=== PATIENT | female | born 1995 | race African-American/Black ===

== ENCOUNTER 2018-01-25 11:49 | Emergency (ER) | payer SELFPAY ==
[2018-01-25 12:08] VITALS: BP 125/64; PULSE 71; RESP 16; TEMP 98.9; O2SAT 99
--- NOTE | 2018-01-25 12:40 | RADRPT ---
EXAM DATE/TIME: 01/25/2018 12:21 [place] COMPARISON: No previous studies available for comparison. INDICATIONS : Twisted left knee while wrestling 3 days ago. Pain with swelling difficult weight bearing. Prio Left knee dislocation MEDICAL HISTORY : Prior dislocation SURGICAL HISTORY : None. ENCOUNTER: Initial ACUITY: 3 days PAIN SCORE: 8/10 LOCATION: Left knee. FINDINGS: Four view examination of the left knee demonstrates no evidence of fracture or dislocation. Bony min eralization is normal. The articular surfaces are intact. The suprapatellar soft tissues have a nor mal configuration. CONCLUSION: Unremarkable examination of the left knee. Weston Gutierrez Jr., MD on January 25, 2018 at 12:36 Board Certified Radiologist. This report was verified electronically.
[2018-01-25] MEDS ORDERED: IBUP1TAB7 PO (13:32)
--- NOTE | 2018-01-25 13:32 | PD ---
HPI Chief Complaint: Injury Time Seen by Provider: 13:18 Travel History International Travel<30 days: No Contact w/Intl Traveler<30days: No Traveled to known affect area: No History of Present Illness HPI Patient comes emergency for evaluation of left knee pain that began 3 days ago. Patient reports that she was wrestling another individual when she slammed the other person to the ground when she turned the wrong way feeling like her patella popped out of place and then pop back in. Patient reports she has had this happen to her in the past ever since injuring it while playing football a year ago. Patient reports this has happened time to time since. Patient denies ever seeing orthopedic for this. Patient reports it usually just gets better in a couple of days. Patient is concerned as it does not seem to be improving. Patient described pain as it just hurts. Denies any radiation of pain. Pain is worse with walking. Not walking improves the pain. PFSH Past Medical History Medical History: Denies Significant Hx ?: Not Social History Alcohol Use: No Tobacco Use: No Substance Use: No Allergies-Medications (Allergen,Severity, Reaction): Coded Allergies: No Known Allergies (Unverified , 01/25/18) Reported Meds & Prescriptions Reported Meds & Active Scripts Active Ibuprofen 800 Mg Tab 800 Mg PO Q8H PRN Review of Systems Except as stated in HPI: all other systems reviewed are Neg Physical Exam Narrative GENERAL: Well-developed, overly nourished, in no acute distress, and non-ill appearing. SKIN: Focused skin assessment warm and dry. HEAD: Atraumatic. Normocephalic. EYES: Pupils equal and round. EOMI. No scleral icterus. No injection or drainage. ENT: No nasal bleeding or discharge. Mucous membranes pink and moist. NECK: Trachea midline. Supple. No nuclear rigidity. CARDIOVASCULAR: Dorsal pulses 2+, intact, and equal bilaterally. RESPIRATORY: No accessory muscle use. No respiratory distress. MUSCULOSKELETAL: No obvious deformities. No clubbing. No cyanosis. No edema. Full range of motion. Knee: Negative patellar apprehension, varus and valgus maneuvers, anterior draw test, and Griselda test. Pulses equal BL distal to injury. Capillary refill less than 2 seconds distal to injury and equal BL. FROM distal to injury and equal BL. Strength distal to injury equal BL. NV intact distal to injury. Dorsal pulses equal BL. Sensation equal BL 1st web space. Patient reports tenderness palpation over anterior aspect of left knee. There is minimal soft tissue swelling noted. No crepitus. No signs of infection. NEUROLOGICAL: Awake and alert. No obvious cranial nerve deficits. Motor grossly within normal limits. Normal speech. PSYCHIATRIC: Appropriate mood and affect; insight and judgment normal. Data Data Last Documented VS Vital Signs Date Time Temp Pulse Resp B/P (MAP) Pulse Ox O2 Delivery O2 Flow Rate FiO2 01/25/18 12:08 98.9 71 16 125/64 (84) 99 Orders Orders Knee, Complete (4vws) (01/25/18 ) Ed Discharge Order (01/25/18 13:33) Splint Or Brace Apply/Monitor (01/25/18 13:33) [facility] Medical Decision Making Medical Screen Exam Complete: Yes Emergency Medical Condition: Yes Interpretation(s) Last Impressions Knee X-Ray 01/25/18 0000 Signed Impressions: Service Date/Time: Thursday, January 25, 2018 12:21 - CONCLUSION: Unremarkable examination of the left knee. Weston Gutierrez Jr., MD Differential Diagnosis Fracture, sprain, contusion, dislocation Narrative Course There is no clinical evidence to suspect bony injury by exam. Radiographic examination revealed no fracture seen at this time. No obvious ligamental injury or obvious internal derangement is noted at this time. The anterior, posterior, lateral and medial collateral ligaments are intact and symmetrical. The distal extremity appears neurovascularly intact, without evidence of neurovascular injury nor compartment syndrome. Tendon exam also was intact. The effected limb was immobilized. The patient was discharged on pain medication along with sprain and splint care instructions and given warnings for vascular compromise. The patient is to follow up with Orthopedics. The patient agrees with plan. Patient in no obvious distress upon re-evaluation. All pertinent Radiology result(s) discussed with patient. Patient was asked if they wanted to speak to my attending, which the patient did not wish to do at this time. Any questions/ concerns in reference to patient diagnosis/condition discussed and clarified prior to patient's discharge. Reinforced sheer importance of close follow up with patient's primary physician or primary care clinic and/or orthopedic. Instructed patient to return to ED immediately, if symptoms return/worsen. Patient showed understanding of above instructions. Further instructions and recommendations were detailed in discharge paperwork. Patient ambulated without difficulty out of ED at discharge with knee immobilizer but refused crutches. Diagnosis Primary Impression: Left knee pain Qualified Codes: M25.562 - Pain in left knee Referrals: Rachid Graf MD Patient Instructions: Crutch Instructions (ED), General Instructions, Knee Immobilizer (ED), Knee Pain (ED) Additional Instructions: Follow-up with your primary care physician and/or orthopedic in 2-3 days for reevaluation. Take all medication as prescribed. Apply ice to affected area 20 minutes prior as needed for pain. Wear knee immobilizer while awake until reevaluated. Use crutches as needed for additional support until reevaluated. Return to the emergency department if symptoms get worse. Med/Other Pt SpecificInfo: Prescription(s) given Scripts Ibuprofen (Ibuprofen) 800 Mg Tab 800 MG PO Q8H Y for Pain/Inflammation, #30 TAB 0 Refills Prov: Edinson Parry MD 01/25/18 Disposition: 01 DISCHARGE HOME Condition: Stable Evan Castillo Jan 25, 2018 13:32
== END 2018-01-25 14:00 | disposition home or self-care (01) ==
LOC: NEPK 11:49
DX: M25.562 Pain in left knee (principal)
CPT/HCPCS: 73564; 99283; E0113; L1830